=== PATIENT | female | born 1945 | race Caucasian/White ===

== ENCOUNTER → 2019-09-25 11:00 | Outpatient (BNVA) | payer MEDICARE, BC, SELFPAY | PROVIDERS: Family Provider Family Medicine; PCP Family Medicine; Visit Provider Family Medicine | DX: E03.9 Hypothyroidism, unspecified (principal) | CPT/HCPCS: 84439; 84443 ==

== ENCOUNTER → 2020-03-17 14:00 | Outpatient (BNVA) | payer MEDICARE, BC, SELFPAY | PROVIDERS: Family Provider Family Medicine; PCP Family Medicine; Visit Provider Dermatology | DX: M81.0 Age-related osteoporosis without current pathological fracture (principal); E03.9 Hypothyroidism, unspecified | CPT/HCPCS: 82306; 82310; 82565; 84443 ==

== ENCOUNTER → 2020-08-13 13:08 | Outpatient (BNVA) | payer MEDICARE, BC, SELFPAY | PROVIDERS: Family Provider Family Medicine; PCP Family Medicine; Referring Provider Dermatology; Visit Provider Podiatrist Foot & Ankle Surgery | DX: M79.672 Pain in left foot (principal) | CPT/HCPCS: 73630 ==

== ENCOUNTER → 2020-11-30 14:20 | Outpatient (BNVA) | payer MEDICARE, BC, SELFPAY | PROVIDERS: Family Provider Family Medicine; PCP Family Medicine; Visit Provider Family Medicine | DX: K58.0 Irritable bowel syndrome with diarrhea (principal) | CPT/HCPCS: 83993 ==

== ENCOUNTER → 2021-03-17 14:31 | Outpatient (BNVA) | payer MEDICARE, BC, SELFPAY | PROVIDERS: Family Provider Family Medicine; PCP Family Medicine; Visit Provider Internal Medicine Gastroenterology | DX: K58.0 Irritable bowel syndrome with diarrhea (principal) | CPT/HCPCS: 85025 ==

== ENCOUNTER → 2021-03-18 09:39 | Outpatient (BNVA) | payer MEDICARE, BC, SELFPAY | PROVIDERS: Family Provider Family Medicine; PCP Family Medicine; Visit Provider Internal Medicine Gastroenterology | DX: K58.0 Irritable bowel syndrome with diarrhea (principal) | CPT/HCPCS: 82270 ==

== ENCOUNTER 2021-05-05 11:47 | Outpatient (CLI) | payer MEDICARE, BC, SELFPAY ==
[2021-05-05 12:11] VITALS: BP 128/74; PULSE 87; RESP 18; TEMP 36.8; O2SAT 97; BMI 23.5
[2021-05-05 12:30] VITALS: BP 124/69; PULSE 90; RESP 18; O2SAT 96
--- NOTE | 2021-05-05 12:44 | PC.NURSE ---
Covid infusion discontinued 5 minutes into infusion due to patient complaining of throat and chest tightness. No sign of respiratory distress. Vitals all WNL O2 96 %. Dr Mayes examined patient. Will discontinue remaining infusion and monitor patient for 1 hour with vitals every 15 minutes. Patient is stable at this time and states chest tightness is resolving.
[2021-05-05 12:45] VITALS: BP 149/76; PULSE 84; RESP 18; O2SAT 98
[2021-05-05 13:05] VITALS: BP 137/57; PULSE 77; RESP 20; O2SAT 99
[2021-05-05 13:22] VITALS: BP 130/68; PULSE 77; RESP 18; O2SAT 96
--- NOTE | 2021-05-05 14:44 | PC.NURSE ---
Patie discharged with no further adverse events. Vitals stable and WNL.
== END 2021-05-05 11:48 | disposition home or self-care (01) ==
PROVIDERS: PCP Family Medicine; Visit Provider Physician Assistant
DX: U07.1 COVID-19 (principal)
CPT/HCPCS: 96365

== ENCOUNTER → 2021-05-18 11:20 | Outpatient (BNVA) | payer MEDICARE, BC, SELFPAY | PROVIDERS: PCP Family Medicine; Visit Provider Nurse Practitioner Family | DX: J02.9 Acute pharyngitis, unspecified (principal) | CPT/HCPCS: 87071; 87880 ==

== ENCOUNTER → 2021-06-01 07:50 | Outpatient (BNVA) | payer MEDICARE, BC, SELFPAY | PROVIDERS: PCP Family Medicine; Visit Provider Nurse Practitioner Family | DX: R25.2 Cramp and spasm (principal); M54.5 Low back pain | CPT/HCPCS: 80053; 83735 ==

== ENCOUNTER → 2021-06-03 13:31 | Outpatient (BNVA) | payer MEDICARE, BC, SELFPAY | PROVIDERS: PCP Family Medicine; Visit Provider Nurse Practitioner Family | DX: M54.5 Low back pain (principal); M51.36 Other intervertebral disc degeneration, lumbar region; M47.816 Spondylosis without myelopathy or radiculopathy, lumbar region | CPT/HCPCS: 72100 ==

== ENCOUNTER 2021-07-13 12:14 | Outpatient (CLI) | payer MEDICARE, BC, SELFPAY ==
--- NOTE | 2021-07-13 13:00 | MR_ITS ---
WS: [id number] MRI LUMBAR SPINE NONCONTRAST TECHNIQUE: Sagittal T1, T2 and STIR imaging. Axial T1 and T2 imaging. CLINICAL INFORMATION: M54.5 - Low back pain COMPARISON: None. FINDINGS: Mild lumbar curve. No acute compression. No high-grade central canal stenosis. 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 L1-L2: Mild disc bulging with slight narrowing of the subarticular recess bilaterally. Mild facet art hropathy. Mild left foraminal narrowing. L2-L3: Mild disc bulging with osteophytic ridging. Impingement traversing left L3 nerve root in the s ubarticular recess. Mild left foraminal narrowing. Right foramen is patent. Mild facet arthropathy. L3-L4: Mild annular bulging with mild central canal stenosis. Impingement traversing right L4 nerve r oot. Mild facet arthropathy. Foramen are patent. L4-L5: Mild disc bulging with mild to moderate central canal stenosis. Impingement on the traversing right greater than left L5 nerve roots. Mild facet arthropathy ligamentum flavum flavum hypertrophy. Mild right greater than left foraminal narrowing. L5-S1: Mild annular bulging with mild central canal stenosis. Slight impingement traversing S1 nerve roots bilaterally. Mild facet arthropathy. Foramen are patent. Visualized pelvic bony structures: Normal. Paravertebral soft tissues: Normal. MR/MR lumbar spine wo con* [id number] IMPRESSION: 1. Mild lumbar curve. No acute compression. No high-grade central canal stenos is. 2. Mild central canal stenosis L3-4 with impingement traversing right L4 nerve root. 3. Mild to moderate central canal stenosis L4-5 and impingement traversing rig ht L5 nerve root. 4. Annular bulging L2-3 with impingement on traversing left L3 nerve root in t he subarticular recess. 5. Mild foraminal narrowing more prominent at right L4-5.
== END 2021-07-13 12:15 | disposition home or self-care (01) ==
LOC: RADSHAW 12:15
PROVIDERS: PCP Family Medicine; Visit Provider Nurse Practitioner Family
DX: M48.061 Spinal stenosis, lumbar region without neurogenic claudication (principal); M51.26 Other intervertebral disc displacement, lumbar region
CPT/HCPCS: 72148

== ENCOUNTER 2021-08-11 06:00 | Outpatient (RCR) | payer MEDICARE, BC, SELFPAY | END 2021-09-06 09:07 | disposition home or self-care (01) | LOC: GPT 06:00 | PROVIDERS: PCP Family Medicine; Referring Provider Nurse Practitioner Family; Visit Provider Nurse Practitioner Family | DX: M54.9 Dorsalgia, unspecified (principal); G89.29 Other chronic pain | CPT/HCPCS: 97110; 97140; 97162 ==

== ENCOUNTER → 2021-08-18 14:10 | Outpatient (BNVA) | payer MEDICARE, BC, SELFPAY | PROVIDERS: PCP Family Medicine; Visit Provider Family Medicine | DX: R30.0 Dysuria (principal) | CPT/HCPCS: 81000; 87086 ==

== ENCOUNTER → 2021-09-22 09:45 | Outpatient (BNVA) | payer MEDICARE, BC, SELFPAY | PROVIDERS: PCP Family Medicine; Visit Provider Family Medicine | DX: N39.0 Urinary tract infection, site not specified (principal) | CPT/HCPCS: 81000 ==

== ENCOUNTER → 2021-10-25 09:23 | Outpatient (BNVA) | payer MEDICARE, BC, SELFPAY | PROVIDERS: PCP Family Medicine; Visit Provider Podiatrist Foot & Ankle Surgery | DX: M79.671 Pain in right foot (principal) | CPT/HCPCS: 73630 ==

== ENCOUNTER → 2021-11-10 14:20 | Outpatient (BNVA) | payer MEDICARE, BC, SELFPAY | PROVIDERS: PCP Family Medicine; Visit Provider Nurse Practitioner Family | DX: R35.0 Frequency of micturition (principal) | CPT/HCPCS: 81003 ==

== ENCOUNTER 2021-12-28 13:55 | Outpatient (CLI) | payer MEDICARE, BC, SELFPAY | END 2021-12-28 13:56 | disposition home or self-care (01) | LOC: SPT 13:56 | PROVIDERS: PCP Family Medicine; Visit Provider Podiatrist Foot & Ankle Surgery | DX: Z46.89 Encounter for fitting and adjustment of other specified devices (principal); M20.40 Other hammer toe(s) (acquired), unspecified foot; M21.619 Bunion of unspecified foot | CPT/HCPCS: 97760; L3030 ==

== ENCOUNTER → 2022-02-10 15:50 | Outpatient (BNVA) | payer MEDICARE, BC, SELFPAY | PROVIDERS: PCP Family Medicine; Visit Provider Internal Medicine Cardiovascular Disease | DX: R00.2 Palpitations (principal); E03.9 Hypothyroidism, unspecified; R55 Syncope and collapse; I49.1 Atrial premature depolarization; I49.3 Ventricular premature depolarization | CPT/HCPCS: 93229; 99203; 99204 ==

== ENCOUNTER 2022-02-28 07:44 | Outpatient (CLI) | payer MEDICARE, BC, SELFPAY ==
--- NOTE | 2022-02-28 08:30 | USCV_ITS ---
Avelina Hinojosa Age: 76 Gender: F : 1945 Exam Date: 02/28/2022 08:37 Ordering Phys: Lissette Dallas MD ([email or web address]) Technologist: Exam Location: [facility] [place] Indication: weakness BP: 110 / 74 HR: 64 Rhythm: Sinus Technical Quality: Adequate MEASUREMENTS (Male / Female) Normal Values 2D ECHO LV Diastolic Diameter PLAX 3.6 cm 4.2 - 5.9 / 3.9 - 5.3 cm LV Systolic Diameter PLAX 2.4 cm IVS Diastolic Thickness 0.8 cm 0.6 - 1.0 / 0.6 - 0.9 cm IVS Systolic Thickness 1.2 cm LVPW Diastolic Thickness 0.9 cm 0.6 - 1.0 / 0.6 - 0.9 cm LVPW Systolic Thickness 1.0 cm LVOT Diameter 2.1 cm LV Ejection Fraction 2D Teich 63.8 % LV Ejection Fraction MOD 2C 53.6 % LV Ejection Fraction 2C AL 52.9 % LA Diameter 2.5 cm Aorta at Sinotubular Diameter 2.5 cm M-MODE Aortic Annulus Diameter 2.7 cm LA Ao Ratio MM 1.0 MV E Point Septal Separation 1.8 cm DOPPLER AV Peak Velocity 132.0 cm/s LVOT Peak Velocity 66.0 cm/s AV Area Cont Eq vti 1.7 cm squared AV Area Cont Eq pk 1.7 cm squared MV Area PHT 5.0 cm squared Mitral E to A Ratio 0.6 MV E' Velocity 33.0 cm/s Mitral E to MV E' Ratio 7.5 Mitral E to LV E' Lateral Ratio 7.5 Mitral E to LV E' Septal Ratio 7.6 TR Peak Velocity 137.0 cm/s TR Peak Gradient 7.5 mmHg Right Atrial Pressure 3.0 mmHg Pulmonary Artery Systolic Pressu 10.5 mmHg FINDINGS Left Ventricle Normal LV size with a slightly diminished ejection fraction of 50%. Mild diffuse hypokinesia of the septum and anteroseptal segments.Grade I/IV diastolic dysfunction (abnormal relaxation filling pattern), normal to mildly elevated filling pressures. Right Ventricle The right ventricle is normal in size and function. Right Atrium The right atrium is normal in size. Left Atrium The left atrium is normal in size. Mitral Valve Thickened mitral valve. Trace mitral valve regurgitation. Aortic Valve No gross abnormalities noted Tricuspid Valve Trace tricuspid valve regurgitation. Pulmonic Valve Pulmonic valve not well visualized. Pericardium Normal pericardium without effusion. Aorta Normal ascending aorta dimension. IVC The inferior vena cava pulmonary and hepatic veins appear normal. CONCLUSIONS Normal LV size with a slightly diminished ejection fraction of 50%. Mild diffuse hypokinesia of the septum and anteroseptal segments.Grade I/IV diastolic dysfunction (abnormal relaxation filling pattern), normal to mildly elevated filling pressures. Thickened mitral valve. Trace mitral valve regurgitation. Trace tricuspid valve regurgitation. Estimated pulmonary artery peak systolic pressure within normal limits There is no pericardial effusion. There are no intracardiac masses. No similar previous studies are available for comparison Dr Lissette Dallas MD FACC (Electronically Signed) Final Date: 01 March 2022 06:03 S
== END 2022-02-28 07:45 | disposition home or self-care (01) ==
LOC: RAD 07:45
PROVIDERS: PCP Family Medicine; Visit Provider Internal Medicine Cardiovascular Disease
DX: R06.00 Dyspnea, unspecified (principal); R00.2 Palpitations
CPT/HCPCS: 93306

== ENCOUNTER 2022-04-01 08:01 | Outpatient (CLI) | payer MEDICARE, BC, SELFPAY ==
[2022-04-01 08:13] VITALS: BMI 24.6
--- NOTE | 2022-04-01 08:29 | ECG_ITS ---
[facility] Test Date: 2022-04-01 Pat Name: Avelina Hinojosa Department: Room: Gender: Female [employer]: Batsheva Corona : 1945 Requested By: Lissette Dallas Order Number: [id number] Kamran MD: Lissette Dallas M.D. Interpretive Statements NAME OF STUDY: EXERCISE SESTAMIBI STRESS TEST INDICATION: Chest Pain, PROCEDURE: The baseline electrocardiogram showed normal sinus rhythm with normal ST-Ts. At the baseline, the patient's blood pressure was 131/71 mm Hg with a heart rate of 88. The patient exercised for 2 minutes and 55 seconds on a standard Raman protocol. Patient attained a maximum heart rate of 145 beats per minute(100% of the maximum predicted heart rate) with a blood pressure at the peak exercise of 174/71 mm Hg. The EKG at the peak exercise revealed no significant changes. Patient did not have any chest pain or any significant arrhythmis with the exercise Sestamibi was injected 1 minute prior to the peak exercise During the recovery phase, there were no new changes. Blood pressure at the end of the recovery phase was 146/65 mm Hg with a heart rate of 82 per minute. CONCLUSION: 1. No significant EKG changes with the treadmill exercise 2. No exercise-induced chest pain or cardiac arrhythmia 3. Impaired exercise tolerance, attained a maximum of 4.6 METs 4. Sestamibi/Sestamibi perfusion results pending; see separate report. Electronically Signed On 04-01-2022 14:08:39 CDT by Lissette Dallas M.D. [id number]
--- NOTE | 2022-04-01 08:30 | NMCV_ITS ---
NM rolanda perf SPECT r/s* [id number] Avelina Hinojosa Age: 76 Gender: F : 1945 Exam Date: 04/01/2022 08:30 Ordering Phys: Lissette Dallas MD ([email or web address]) Technologist: BERRY Grant Exam Location: [facility] Indications: CHEST PAIN STRESS TEST Please see separate stress test report in [facility] for full findings IMAGE PROTOCOL Rest/Stress 1 Exercise Day Radiopharmaceutical Dose (mCi) Administration Site Administered by Rest: Tc-99m 10.7 IV BERRY Durán Sestamileno Stress:Tc-99m 33.0 IV BERRY Grant Sestamileno Rest: 01-Apr-2022 60 Discovery 630 Stress: 01-Apr-2022 15 Discovery 630 Radiopharmaceutical was injected at 91 % maximum heart rate. Images obtained in supine and prone position. SPECT RESULTS Technical Quality: Excellent Raw Data Analysis: Normal Image Corrections: No attenuation or motion correction applied Summed Stress Score: 1 Summed Rest Score: 1 Summed Difference Score: 1 PERFUSION FINDINGS A small area of slightly decreased tracer uptake in the apical lateral region, with some reversibility with the supine imaging. However with the prone imaging, there is uniform tracer uptake was noted. FUNCTIONAL RESULTS (calculated via Gated SPECT) Stress Image LV EF (%): 65 Stress EDV (mL):71 TID: 1.15 Stress ESV (mL):25 FUNCTIONAL FINDINGS: Segmental wall motion analysis revealing no gross wall motion abnormalities. The transient ischemic dilatation ratio is slightly elevated. IMPRESSIONS 1. Myocardial perfusion imaging revealing a small area of inconsistent reversible defect in the apical lateral region, possibly related to attenuation artifacts. 2. Normal LV ejection fraction 65%. 3. LV wall motion analysis revealing no gross wall motion abnormalities. 4. Normal LV volume. 5. Borderline elevation of transient ischemic dilatation ratio may suggest endocardial ischemia. However the positive predictive value of this finding is limited. Clinical correlation is recommended. Dr Lissette Dallas MD FACC (Electronically Signed) Final Date: 01 April 2022 13:54 S
[2022-04-01 10:14] VITALS: BP 146/65; PULSE 80
== END 2022-04-01 08:02 | disposition home or self-care (01) ==
LOC: CDL 08:03
PROVIDERS: PCP Family Medicine; Visit Provider Internal Medicine Cardiovascular Disease
DX: R07.9 Chest pain, unspecified (principal); R00.2 Palpitations
CPT/HCPCS: 78452; 93017; A9500

== ENCOUNTER → 2022-05-03 09:30 | Outpatient (BNVA) | payer MEDICARE, BC, SELFPAY | PROVIDERS: PCP Family Medicine; Visit Provider Otolaryngology | DX: G89.29 Other chronic pain (principal); H93.8X1 Other specified disorders of right ear; R51.9 Headache, unspecified; M26.623 Arthralgia of bilateral temporomandibular joint; Z87.891 Personal history of nicotine dependence; J31.0 Chronic rhinitis; R09.82 Postnasal drip | CPT/HCPCS: 99203 ==

== ENCOUNTER → 2022-08-11 14:17 | Outpatient (BNVA) | payer MEDICARE, BC, SELFPAY | PROVIDERS: PCP Family Medicine; Visit Provider Nurse Practitioner Family | DX: R30.0 Dysuria (principal) | CPT/HCPCS: 81000; 81003; 87086 ==

== ENCOUNTER → 2022-09-15 13:07 | Outpatient (BNVA) | payer MEDICARE, BC, SELFPAY | PROVIDERS: PCP Family Medicine; Visit Provider Podiatrist Foot & Ankle Surgery | DX: M20.42 Other hammer toe(s) (acquired), left foot (principal); M20.41 Other hammer toe(s) (acquired), right foot; M21.619 Bunion of unspecified foot; M25.871 Other specified joint disorders, right ankle and foot | CPT/HCPCS: 99213 ==

== ENCOUNTER → 2022-10-03 11:31 | Outpatient (BNVA) | payer MEDICARE, BC, SELFPAY | PROVIDERS: PCP Family Medicine; Visit Provider Nurse Practitioner Family | DX: R41.82 Altered mental status, unspecified (principal) | CPT/HCPCS: 81003; 87086 ==

== ENCOUNTER 2022-11-15 15:44 | Outpatient (CLI) | payer MEDICARE, BC, SELFPAY | END 2022-11-15 15:45 | disposition home or self-care (01) | LOC: SPT 15:45 | PROVIDERS: PCP Family Medicine; Visit Provider Podiatrist Foot & Ankle Surgery | DX: Z46.89 Encounter for fitting and adjustment of other specified devices (principal); M20.40 Other hammer toe(s) (acquired), unspecified foot; M21.619 Bunion of unspecified foot; M25.871 Other specified joint disorders, right ankle and foot | CPT/HCPCS: 97760; L3030 ==

== ENCOUNTER 2022-12-08 06:00 | Outpatient (RCR) | payer MEDICARE, BC, SELFPAY | END 2022-12-09 23:59 | disposition home or self-care (01) | LOC: GPT 06:00 | PROVIDERS: Visit Provider Orthopaedic Surgery | DX: Z47.89 Encounter for other orthopedic aftercare (principal) | CPT/HCPCS: 97110; 97140; 97161 ==

== ENCOUNTER 2022-12-10 06:00 | Outpatient (RCR) | payer MEDICARE, BC, SELFPAY | END 2023-01-08 23:59 | disposition home or self-care (01) | LOC: GPT 06:00 | PROVIDERS: PCP Nurse Practitioner Family; Visit Provider Orthopaedic Surgery | DX: Z98.890 Other specified postprocedural states (principal) | CPT/HCPCS: 97110; 97140; G0283 ==

== ENCOUNTER → 2023-01-05 13:03 | Outpatient (BNVA) | payer MEDICARE, BC, SELFPAY | PROVIDERS: PCP Nurse Practitioner Family; Visit Provider Dermatology | DX: L57.0 Actinic keratosis (principal); L57.8 Other skin changes due to chronic exposure to nonionizing radiation; L81.4 Other melanin hyperpigmentation; Z85.828 Personal history of other malignant neoplasm of skin; L73.8 Other specified follicular disorders; Z87.891 Personal history of nicotine dependence | CPT/HCPCS: 17000; 99213 ==

== ENCOUNTER 2023-01-09 06:00 | Outpatient (RCR) | payer MEDICARE, BC, SELFPAY | END 2023-02-08 23:59 | disposition home or self-care (01) | LOC: GPT 06:00 | PROVIDERS: PCP Nurse Practitioner Family; Visit Provider Orthopaedic Surgery | DX: Z47.89 Encounter for other orthopedic aftercare (principal) | CPT/HCPCS: 97110; 97112; 97140; 97164; 97530; G0283 ==

== ENCOUNTER → 2023-01-19 14:54 | Outpatient (BNVA) | payer MEDICARE, BC, SELFPAY | PROVIDERS: PCP Nurse Practitioner Family; Visit Provider Nurse Practitioner Family | DX: E03.9 Hypothyroidism, unspecified (principal); E83.42 Hypomagnesemia | CPT/HCPCS: 80053; 80061; 83735; 84443 ==

== ENCOUNTER → 2023-02-03 10:22 | Outpatient (BNVA) | payer MEDICARE, BC, SELFPAY | PROVIDERS: PCP Nurse Practitioner Family; Visit Provider Nurse Practitioner Family | DX: R39.15 Urgency of urination (principal) | CPT/HCPCS: 81000 ==

== ENCOUNTER 2023-04-04 06:00 | Outpatient (RCR) | payer MEDICARE, BC, SELFPAY | END 2023-04-10 23:59 | disposition home or self-care (01) | LOC: GPT 06:00 | PROVIDERS: Visit Provider Physician Assistant | DX: Z47.1 Aftercare following joint replacement surgery (principal); Z96.651 Presence of right artificial knee joint | CPT/HCPCS: 97110; 97140; 97161 ==

== ENCOUNTER 2023-04-11 06:00 | Outpatient (RCR) | payer MEDICARE, BC, SELFPAY | END 2023-05-11 23:59 | disposition home or self-care (01) | LOC: GPT 06:00 | PROVIDERS: Visit Provider Physician Assistant | DX: Z47.1 Aftercare following joint replacement surgery (principal); Z96.651 Presence of right artificial knee joint | CPT/HCPCS: 97110; 97112; 97140 ==

== ENCOUNTER → 2023-04-18 10:40 | Outpatient (BNVA) | payer MEDICARE, BC, SELFPAY | PROVIDERS: PCP Nurse Practitioner Family; Visit Provider Student in an Organized Health Care Education/Training Program | DX: E03.9 Hypothyroidism, unspecified (principal); M81.0 Age-related osteoporosis without current pathological fracture | CPT/HCPCS: 80048; 82652; 84439; 84443 ==

== ENCOUNTER 2023-05-12 06:00 | Outpatient (RCR) | payer MEDICARE, BC, SELFPAY | END 2023-06-10 23:59 | disposition home or self-care (01) | LOC: GPT 06:00 | PROVIDERS: PCP Nurse Practitioner Family; Visit Provider Physician Assistant | DX: Z47.1 Aftercare following joint replacement surgery (principal); Z96.651 Presence of right artificial knee joint | CPT/HCPCS: 97110; 97112; 97140; 97530 ==

== ENCOUNTER 2023-06-11 06:00 | Outpatient (RCR) | payer MEDICARE, BC, SELFPAY | END 2023-07-11 23:59 | disposition home or self-care (01) | LOC: GPT 06:00 | PROVIDERS: PCP Nurse Practitioner Family; Visit Provider Physician Assistant | DX: Z47.1 Aftercare following joint replacement surgery (principal); Z96.651 Presence of right artificial knee joint | CPT/HCPCS: 97110; 97140; 97530 ==

== ENCOUNTER → 2023-06-16 09:38 | Outpatient (BNVA) | payer MEDICARE, BC, SELFPAY | PROVIDERS: PCP Nurse Practitioner Family; Visit Provider Nurse Practitioner Family | DX: E03.9 Hypothyroidism, unspecified (principal) | CPT/HCPCS: 84443 ==

== ENCOUNTER 2023-07-12 06:00 | Outpatient (RCR) | payer MEDICARE, BC, SELFPAY | END 2023-08-10 23:59 | disposition home or self-care (01) | LOC: GPT 06:00 | PROVIDERS: PCP Nurse Practitioner Family; Visit Provider Physician Assistant | DX: Z47.1 Aftercare following joint replacement surgery (principal); Z96.651 Presence of right artificial knee joint | CPT/HCPCS: 97110; 97112; 97140; 97164 ==

== ENCOUNTER 2023-08-11 06:00 | Outpatient (RCR) | payer MEDICARE, BC, SELFPAY | END 2023-09-10 23:59 | disposition home or self-care (01) | LOC: GPT 06:00 | PROVIDERS: PCP Nurse Practitioner Family; Visit Provider Physician Assistant | DX: Z47.1 Aftercare following joint replacement surgery (principal); Z96.651 Presence of right artificial knee joint | CPT/HCPCS: 97110; 97112 ==

== ENCOUNTER → 2023-08-15 08:02 | Outpatient (BNVA) | payer MEDICARE, BC, SELFPAY | PROVIDERS: PCP Nurse Practitioner Family; Visit Provider Podiatrist Foot & Ankle Surgery | DX: M25.871 Other specified joint disorders, right ankle and foot (principal); M20.40 Other hammer toe(s) (acquired), unspecified foot; M21.619 Bunion of unspecified foot; L84 Corns and callosities; M20.42 Other hammer toe(s) (acquired), left foot; M20.41 Other hammer toe(s) (acquired), right foot; M21.612 Bunion of left foot; M21.611 Bunion of right foot | CPT/HCPCS: 99213 ==

== ENCOUNTER → 2023-09-12 13:45 | Outpatient (BNVA) | payer MEDICARE, BC, SELFPAY | PROVIDERS: PCP Nurse Practitioner Family; Visit Provider Nurse Practitioner Family | DX: M94.0 Chondrocostal junction syndrome [Tietze] (principal); R05.9 Cough, unspecified | CPT/HCPCS: 71046 ==

== ENCOUNTER 2023-09-18 10:47 | Outpatient (CLI) | payer MEDICARE, BC, SELFPAY | END 2023-09-18 10:48 | disposition home or self-care (01) | LOC: SPT 10:48 | PROVIDERS: PCP Nurse Practitioner Family; Visit Provider Podiatrist Foot & Ankle Surgery | DX: Z46.89 Encounter for fitting and adjustment of other specified devices (principal); M25.871 Other specified joint disorders, right ankle and foot; M20.40 Other hammer toe(s) (acquired), unspecified foot; M21.619 Bunion of unspecified foot; L84 Corns and callosities | CPT/HCPCS: L3030 ==

== ENCOUNTER → 2023-09-28 09:43 | Outpatient (BNVA) | payer MEDICARE, SELFPAY | PROVIDERS: PCP Nurse Practitioner Family; Visit Provider Dermatology | DX: L57.8 Other skin changes due to chronic exposure to nonionizing radiation (principal); L81.4 Other melanin hyperpigmentation; Z85.828 Personal history of other malignant neoplasm of skin; L73.8 Other specified follicular disorders; L72.0 Epidermal cyst | CPT/HCPCS: 17000; 99213 ==

== ENCOUNTER → 2023-12-13 14:13 | Outpatient (BNVA) | payer MEDICARE, SELFPAY | PROVIDERS: PCP Nurse Practitioner Family; Visit Provider Nurse Practitioner Family | DX: R35.0 Frequency of micturition (principal) | CPT/HCPCS: 81000; 87086 ==

== ENCOUNTER → 2024-01-23 12:53 | Outpatient (BNVA) | payer MEDICARE, SELFPAY | PROVIDERS: PCP Nurse Practitioner Family; Visit Provider Dermatology | DX: L57.0 Actinic keratosis (principal); L81.4 Other melanin hyperpigmentation; L84 Corns and callosities; Z85.828 Personal history of other malignant neoplasm of skin | CPT/HCPCS: 17000; 99213 ==

== ENCOUNTER → 2024-04-05 09:30 | Outpatient (BNVA) | payer MEDICARE, SELFPAY | PROVIDERS: PCP Nurse Practitioner Family; Visit Provider Nurse Practitioner Family | DX: E03.9 Hypothyroidism, unspecified (principal); E83.42 Hypomagnesemia; M62.89 Other specified disorders of muscle; E55.9 Vitamin D deficiency, unspecified; E53.8 Deficiency of other specified B group vitamins | CPT/HCPCS: 80053; 82306; 82607; 83735; 84443; 85025 ==

== ENCOUNTER → 2024-05-06 15:24 | Outpatient (BNVA) | payer MEDICARE, SELFPAY | PROVIDERS: PCP Nurse Practitioner Family; Visit Provider Podiatrist Foot & Ankle Surgery | DX: Q82.8 Other specified congenital malformations of skin; M20.41 Other hammer toe(s) (acquired), right foot; M20.42 Other hammer toe(s) (acquired), left foot; L60.3 Nail dystrophy; M21.611 Bunion of right foot; M21.612 Bunion of left foot | CPT/HCPCS: 99213 ==

== ENCOUNTER → 2024-05-15 13:40 | Outpatient (BNVA) | payer MEDICARE, SELFPAY | PROVIDERS: PCP Nurse Practitioner Family; Visit Provider Nurse Practitioner Family | DX: N30.00 Acute cystitis without hematuria (principal) | CPT/HCPCS: 81000 ==

== ENCOUNTER → 2024-07-25 15:14 | Outpatient (BNVA) | payer MEDICARE, SELFPAY | PROVIDERS: PCP Nurse Practitioner Family; Visit Provider Dermatology | DX: L81.4 Other melanin hyperpigmentation (principal); D22.39 Melanocytic nevi of other parts of face; L85.3 Xerosis cutis; L82.1 Other seborrheic keratosis; L57.0 Actinic keratosis | CPT/HCPCS: 17000; 99213 ==

== ENCOUNTER → 2024-12-02 14:00 | Outpatient (BNVA) | payer MEDICARE, SELFPAY | PROVIDERS: PCP Nurse Practitioner Family; Visit Provider Family Medicine | DX: R79.89 Other specified abnormal findings of blood chemistry (principal); E03.9 Hypothyroidism, unspecified; E53.8 Deficiency of other specified B group vitamins; E83.42 Hypomagnesemia; E55.9 Vitamin D deficiency, unspecified; R25.2 Cramp and spasm | CPT/HCPCS: 80053; 80061; 82306; 82607; 82728; 82746; 83540; 83735; 84100; 84439; 84443 ==

== ENCOUNTER 2025-01-10 14:16 | Outpatient (CLI) | payer MEDICARE, SELFPAY ==
--- NOTE | 2025-01-10 14:30 | MR_ITS ---
WS: [id number] MRI CERVICAL SPINE NONCONTRAST TECHNIQUE: Sagittal T1, T2 and STIR imaging. Axial T2, gradient, and fiesta imaging. CLINICAL INFORMATION: M54.2 - Cervicalgia COMPARISON: None. FINDINGS: Straightening the normal cervical lordosis. Mild spondylitic changes. Cord signal is normal. No high-grade central canal narrowing. Small protrusions in the upper thoracic spine. Small vessel changes in the yuliya. C2-C3: Mild disc bulging. Mild facet arthropathy. Spinal canal is patent. Mild LEFT foraminal narrowing. C3-C4: Small central disc osteophyte complex. Mild central canal stenosis. Moderate facet arthropathy. Mild RIGHT greater than LEFT foraminal narrowing. C4-C5: Disc osteophyte complex with mild central canal stenosis. Moderate facet arthropathy. Mild LEFT foraminal narrowing. C5-C6: RIGHT paracentral disc protrusion with slight indentation the RIGHT ventral cervical cord. Moderate to severe RIGHT and mild LEFT bony foraminal narrowing. Moderate facet arthropathy. C6-C7: RIGHT paracentral disc osteophyte protrusion. Slight indentation of the cervical cord. Mild to moderate central canal stenosis. Moderate RIGHT and mild LEFT bony foraminal narrowing. Moderate facet arthropathy. C7-T1: Mild to moderate LEFT and mild RIGHT bony foraminal narrowing. Spinal canal is patent. Visualized brain stem structures: Normal. Prevertebral soft tissues: Normal. MR/MR cervical spin wo con* [id number] IMPRESSION: 1. Mild to moderate central canal stenosis C5-C6 and C6-C7 is similar to previ ous and not significantly progressed. 2. Shallow central protrusion with slight contact of the cervical cord and mil d central canal stenosis at C3-4 appears stable. 3. Bony foraminal narrowing worse at RIGHT C5-C6 and RIGHT C6-7. This is stabl e compared to previous.
== END 2025-01-10 14:17 | disposition home or self-care (01) ==
LOC: RAD 14:17
PROVIDERS: PCP Nurse Practitioner Family; Visit Provider Family Medicine
DX: M48.02 Spinal stenosis, cervical region (principal); G89.29 Other chronic pain; M47.812 Spondylosis without myelopathy or radiculopathy, cervical region; E83.42 Hypomagnesemia; M47.22 Other spondylosis with radiculopathy, cervical region; M51.24 Other intervertebral disc displacement, thoracic region; M50.31 Other cervical disc degeneration, high cervical region; M25.78 Osteophyte, vertebrae; M50.222 Other cervical disc displacement at C5-C6 level; M50.223 Other cervical disc displacement at C6-C7 level; M48.03 Spinal stenosis, cervicothoracic region
CPT/HCPCS: 72141

== ENCOUNTER → 2025-04-22 15:07 | Outpatient (BNVA) | payer MEDICARE, SELFPAY | PROVIDERS: PCP Family Medicine; Visit Provider Nurse Practitioner Family | DX: D22.39 Melanocytic nevi of other parts of face (principal); L82.1 Other seborrheic keratosis; L81.4 Other melanin hyperpigmentation; Z08 Encounter for follow-up examination after completed treatment for malignant neoplasm; Z85.828 Personal history of other malignant neoplasm of skin; L57.0 Actinic keratosis | CPT/HCPCS: 17000; 99213 ==

== ENCOUNTER → 2025-08-20 14:04 | Outpatient (BNVA) | payer MEDICARE, SELFPAY | PROVIDERS: PCP Family Medicine; Visit Provider Family Medicine | DX: M81.0 Age-related osteoporosis without current pathological fracture (principal) | CPT/HCPCS: 82310 ==

== ENCOUNTER → 2025-08-26 08:23 | Outpatient (BNVA) | payer MEDICARE, SELFPAY | PROVIDERS: PCP Family Medicine; Visit Provider Podiatrist Foot & Ankle Surgery | DX: M21.619 Bunion of unspecified foot (principal); Q82.8 Other specified congenital malformations of skin; M20.41 Other hammer toe(s) (acquired), right foot; M20.42 Other hammer toe(s) (acquired), left foot; L60.3 Nail dystrophy | CPT/HCPCS: 99213 ==

== ENCOUNTER 2025-09-01 07:20 | Outpatient (CLI) | payer MEDICARE, SELFPAY ==
--- NOTE | 2025-09-01 08:00 | CT_ITS ---
WS: [id number] CT PARANASAL SINUSES HISTORY: J32.0 - Chronic maxillary sinusitis TECHNIQUE: Contiguous 2.5 mm axial images obtained through the sinuses. Images are reconstructed in sagittal and coronal planes. All CT scans at [facility] use at least one of these dose optimization techniques: automated exposure control; mA and/or kV adjustment per patient size (includes targeted exams where dose is matched to clinical indication); or iterative reconstruction. DLP: 358.75 mGy.cm COMPARISON: None available. Frontal sinuses: Normal. Sphenoid sinus: Normal. Ethmoid sinuses: Normal. Maxillary sinus: Tiny amount of mucoperiosteal thickening in the LEFT maxillary sinus. Ostiomeatal unit: Patent. Mild deviation of the nasal septum to the RIGHT with minimal bony spurring. Soft tissues are normal. Incidental note is made of bilateral basal ganglia calcifications. No destructive bone lesions. CT/CT sinus wo con* [id number] IMPRESSION: 1. Mild mucoperiosteal thickening in the LEFT maxillary sinus. 2. The remaining sinuses are negative. 3. Normal ostiomeatal unit.
== END 2025-09-01 07:21 | disposition home or self-care (01) ==
PROVIDERS: PCP Family Medicine; Visit Provider Family Medicine
DX: J32.0 Chronic maxillary sinusitis (principal); H93.8X3 Other specified disorders of ear, bilateral; J31.0 Chronic rhinitis
CPT/HCPCS: 70486

== ENCOUNTER 2025-09-10 15:19 | Outpatient (CLI) | payer MEDICARE, SELFPAY | END 2025-09-10 15:20 | disposition home or self-care (01) | LOC: SPT 15:20 | PROVIDERS: PCP Family Medicine; Visit Provider Podiatrist Foot & Ankle Surgery | DX: Z46.89 Encounter for fitting and adjustment of other specified devices (principal); M20.41 Other hammer toe(s) (acquired), right foot; M20.42 Other hammer toe(s) (acquired), left foot; M21.611 Bunion of right foot; M21.612 Bunion of left foot | CPT/HCPCS: L3030 ==